=== PATIENT | female | born 1970 | race Caucasian/White ===

== ENCOUNTER 2021-02-01 12:30 | Emergency (ER) | payer OTHER ==
[~2021-02-01 12:30] MED LIST: CORTEF10 MG PO; FLEXERIL10 MG PO; LEVOTHYROXINE100 MCG PO; MELATONIN1 MG PO; VITAMIN D31000 UNIT PO; VOLTAREN **OUT75 MG PO; ZETIA10 MG PO
[2021-02-01 14:56] LABS: BASOPHIL 0.7 % (0-2); HCT 43.3 % (37.0-47.0); LYMPHOCYTE 21.4 % (15-48); MCH 30.2 pg (25.0-31.0); MCHC 34.6 g/dL (32.0-36.0); MCV 87.3 fL (78.0-100.0); MPV 10.4 fL (6.0-9.5); NEUTROPHIL 67.5 % (41-80); NRBC 0; PLT 102 K/uL (150-400); RBC 4.96 M/uL (4.20-5.40); RDW 13.6 % (11.5-14.0); WBC 8.5 K/uL (4.0-10.5)
[2021-02-01 15:14] LABS: ALBUMIN 3.1 g/dL (3.4-5.0); BILIRUBIN - TOTAL 3.3 mg/dL (0.2-1.0); BUN/CREAT RATIO (CALC) 14.9 RATIO; CREATININE 0.67 mg/dL (0.51-0.95); GLOBULIN (CALCULATION) 3.9 g/dL
[2021-02-01] MEDS ORDERED: ZOFRAN4 M1 PO (15:47)
== END 2021-02-01 16:17 | disposition home or self-care (01) ==
LOC: FER 12:30
PROVIDERS: Nurse Practitioner Family
DX: B34.9 Viral infection, unspecified (principal); Z20.822 Contact with and (suspected) exposure to COVID-19; Z88.1 Allergy status to other antibiotic agents; Z79.899 Other long term (current) drug therapy
CPT/HCPCS: 36415; 80053; 83690; 85025; 99284; J7030; U0002

== ENCOUNTER 2022-01-08 14:29 | Emergency (ER) | payer OTHER ==
[~2022-01-08 14:29] MED LIST changes: +ZOFRAN4 M1 PO
[2022-01-08 16:03] LABS: BASOPHIL 0.8 % (0-2); EOSINOPHIL 0.8 % (0-5); HCT 46.9 % (37.0-47.0); HGB 16.1 g/dl (12.5-16.0); LYMPHOCYTE 44.2 % (15-48); MCH 30.9 pg (25.0-31.0); MCHC 34.3 g/dL (32.0-36.0); NEUTROPHIL 32.2 % (41-80); NRBC 0.5; PLT 86 K/uL (150-400); RBC 5.21 M/uL (4.20-5.40); RDW 14.2 % (11.5-14.0); WBC 3.9 K/uL (4.0-10.5)
[2022-01-08 16:04] LABS: MONOCYTE 21.2 % (0-12)
[2022-01-08 17:19] LABS: BUN/CREAT RATIO (CALC) 14.9 RATIO; CREATININE 0.87 mg/dL (0.51-0.95); POTASSIUM 4.1 mmol/L (3.5-5.1)
[2022-01-08 17:27] LABS: BILIRUBIN 2+ mg/dL (NEGATIVE); BLOOD 1+ Ery/uL (NEGATIVE); CLARITY CLEAR (CLEAR); COLOR YELLOW (YELLOW); GLUCOSE (U) TRACE mg/dL (NORMAL); LEUKOCYTES TRACE Leu/uL (NEGATIVE); NITRITE NEGATIVE (NEGATIVE); PROTEIN NEGATIVE (NEGATIVE); SPECIFIC GRAVITY >=1.030 (1.001-1.030); UROBILINOGEN >=8.0 mg/dL (0.2-1.0)
[2022-01-08 18:20] LABS: BACTERIA 2+
[2022-01-08 20:09] LABS: INFLUENZA A NAA NEGATIVE (NEGATIVE)
[2022-01-08 20:11] LABS: CORONAVIRUS 2019 SARS-COV-2 POSITIVE (NEGATIVE)
[2022-01-08] MEDS ORDERED: BACTRIM DS TAB1 EACH PO (23:54)
[2022-01-08] MEDS ORDERED: ONDANSETRON ODT4 MG PO (23:54)
[2022-01-08] MEDS ORDERED: PAXLOVID 150-11 EACH PO (23:54)
== END 2022-01-09 00:05 | disposition home or self-care (01) ==
LOC: FER 14:29
PROVIDERS: Nurse Practitioner Family
DX: U07.1 COVID-19 (principal); E86.0 Dehydration; N39.0 Urinary tract infection, site not specified; Z88.1 Allergy status to other antibiotic agents; Z28.310 Unvaccinated for COVID-19
CPT/HCPCS: 36415; 80048; 81001; 85025; 87088; J2405; J7030; Q9967; U0002